=== PATIENT | male | born 1935 | race Caucasian/White ===

== ENCOUNTER → 2023-10-20 | Outpatient (CLI) | payer MEDICARE, BC ==
[2023-10-20 14:51] LABS: HCT 35.3 % (39.6-50.0); MCH 31.7 pg (27.0-32.0); MCHC 31.2 g/dL (32.0-37.0); MCV 101.7 FL (80.0-97.0); Mean Platelet Volume 11.4 FL (9.5-12.2); NRBC Per 100 WBC 0 X 10*3/uL (0.00-0.01); Platelet Count 161 X 10*3/uL (140-440); RBC 3.47 X 10*6/uL (4.40-5.60); RDW 17.3 % (11.5-14.5)
[2023-10-20 17:35] LABS: Blood Urea Nitrogen 38.8 mg/dL (9.0-27.0); Chloride 106 mmol/L (96-109); Potassium 4.8 mmol/L (3.5-5.5); Sodium 141 mmol/L (135-145)
== END | disposition home or self-care (01) ==
LOC: LABPAT 09:14
PROVIDERS: ATTEND Internal Medicine Interventional Cardiology
DX: Z01.812 Encounter for preprocedural laboratory examination (principal); I49.9 Cardiac arrhythmia, unspecified; I38 Endocarditis, valve unspecified; R06.02 Shortness of breath
CPT/HCPCS: 80051; 82565; 84520; 85027